=== PATIENT | female | born 1955 | race Two or more races ===

== ENCOUNTER 2019-08-29 12:22 | Emergency (ER) | payer OTHER ==
[~2019-08-29] VITALS: Ht 160 cm; Wt 54.4 kg
[2019-08-29] MEDS ORDERED: AMLOD-VALSA-HC1 EAC1 (13:03)
[2019-08-29] MEDS ORDERED: SYMBICORT 16010.2 GM (13:04)
[2019-08-29] MEDS ORDERED: PROAIR HFA8.5 GM (13:04)
== END 2019-08-29 21:25 | disposition home or self-care (01) ==
LOC: ER 12:22
DX: K57.92 Diverticulitis of intestine, part unspecified, without perforation or abscess without bleeding (principal); N20.0 Calculus of kidney

== ENCOUNTER 2019-09-01 12:21 | Inpatient (IN) | payer OTHER ==
[~2019-09-01] VITALS: Ht 160 cm; Wt 53.5 kg
[~2019-09-01 12:21] MED LIST: AMLOD-VALSA-HC1 EAC1; PROAIR HFA8.5 GM; SYMBICORT 16010.2 GM
[2019-09-01] MEDS ORDERED: AMOX CLAV (13:04)
[2019-09-01] MEDS ORDERED: HYOSCYAMINE0.125 MG (13:05)
[2019-09-03] MEDS ORDERED: AMOX-CLAV 875-1 EACH (08:16)
[2019-09-05] MEDS ORDERED: CIPRO500 MG PO (12:32)
[2019-09-05] MEDS ORDERED: FLAGYL500MG PO (12:33)
[2019-09-05] MEDS ORDERED: INTESTINEX680 M1 PO (12:34)
== END 2019-09-05 13:46 | disposition home or self-care (01) | DRG 392 ==
LOC: ER 12:21 → MEDI 09-02 07:15
PROVIDERS: ADMIT Internal Medicine; ATTEND Internal Medicine
PROC: BW21ZZZ Computerized Tomography (CT Scan) of Abdomen and Pelvis (ICD-10-PCS; principal; 2019-09-02)
DX: K57.32 Diverticulitis of large intestine without perforation or abscess without bleeding (principal); I10 Essential (primary) hypertension; K52.9 Noninfective gastroenteritis and colitis, unspecified; K59.00 Constipation, unspecified; E87.6 Hypokalemia

== ENCOUNTER → 2023-02-12 | Emergency (ER) | payer OTHER ==
[~2023-02-12] VITALS: Ht 162.6 cm; Wt 49.9 kg
[~2023-02-12] MED LIST changes: +AMOX CLAV; +AMOX-CLAV 875-1 EACH; +CIPRO500 MG PO; +FLAGYL500MG PO; +HYOSCYAMINE0.125 MG; +INTESTINEX680 M1 PO
== END | disposition home or self-care (01) ==
LOC: ER 18:56
DX: S00.93XA Contusion of unspecified part of head, initial encounter (principal); S14.109A Unspecified injury at unspecified level of cervical spinal cord, initial encounter; W18.30XA Fall on same level, unspecified, initial encounter; Y93.89 Activity, other specified; Y92.520 Airport as the place of occurrence of the external cause; Y99.9 Unspecified external cause status; I10 Essential (primary) hypertension

== ENCOUNTER → 2024-05-08 | Emergency (ER) | payer OTHER ==
[~2024-05-08] VITALS: Ht 162.6 cm; Wt 49.9 kg
[~2024-05-08] MED LIST changes: +KETOROLAC TROMETHAMINE 60 MG VIAL IM ONE
[2024-05-08 18:10] LABS: HEMATOCRIT 43.2 % (36.0-45.00); MEAN CELL VOLUME 105.9 fL (80.00-100.00); MEAN CORPUSCULAR HEMOGLOBIN 36.8 pg (27.00-32.0); MEAN CORPUSCULAR HGB CONC 34.7 g/dl (32.0-36.0); PLATELET COUNT 269 K/uL (150-450); RED BLOOD COUNT 4.08 M/uL (4.00-6.00)
[2024-05-08 18:34] LABS: CALCIUM 9.1 mg/dL (8.5-10.1); CREATININE SERUM 0.48 mg/dL (0.55-1.02); POTASSIUM 3.59 mEq/L (3.5-5.1)
[2024-05-08 19:28] LABS: PH,URINE 5.5 (5.0-8.0); URINE APPEARANCE Clear; URINE BILIRRUBIN Negative (NEGATIVE); URINE BLOOD Negative; URINE COLOR Yellow; URINE GLUCOSE Negative (NEGATIVE); URINE KETONE Negative (NEGATIVE); URINE LEUKOCYTE Small; URINE NITRATE Negative; URINE PROTEIN Negative (NEGATIVE); URINE UROBILINOGEN 0.2 E.U./dl
[2024-05-08 19:33] LABS: URINE BACTERIA 907.9 uL (0.0-1933); URINE EPITHELIAL CELLS 31.7 uL (0.0-38.8); URINE RBC 4.5 uL (0.0-20.8); URINE WBC 9.9 uL (0.0-23.2)
[2024-05-08 19:39] LABS: URINE CAST 0.29 uL (0.0-1.40)
== END | disposition home or self-care (01) ==
LOC: ER 17:19
PROVIDERS: Emergency Medicine
DX: K57.32 Diverticulitis of large intestine without perforation or abscess without bleeding (principal); R10.9 Unspecified abdominal pain
CPT/HCPCS: 36415; 74177; 96372; 99284; J1885; Q9965